=== PATIENT | male | born 2000 | race African-American/Black ===

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

== ENCOUNTER 2021-01-21 09:22 | Emergency (ER) | payer OTHER ==
[2021-01-21] MEDS ORDERED: SODIUM CHLORIDE IV ONE (09:45)
[2021-01-21 09:46] VITALS: BMI 22.7
[2021-01-21 10:35] LABS: BASO % 0.4 % (0-2.0); EOS % 0.9 % (0-4.5); HEMATOCRIT 44.1 % (35.4-49); HEMOGLOBIN 14.4 GM/dL (11.7-16.9); LYMPH % 12.4 % (8-40); MCH 29.4 pg (25.7-33.7); MCHC 32.8 g/dl (32.0-35.9); MEAN CELL VOLUME 89.7 fl (80-96); MONO % 5.4 % (3.8-10.2); NEUT % 80.9 % (42.8-82.8); PLATELET COUNT 210 K/MM3 (134-434); RBC 4.91 M/mm3 (4.00-5.60); RDW 12.6 % (11.9-15.9); WHITE BLOOD COUNT 7.1 K/mm3 (4.0-10.0)
[2021-01-21 10:58] LABS: CHLORIDE 104 mmol/L (98-107); SODIUM 138 mmol/L (136-145)
[2021-01-21 11:00] LABS: CALCIUM 9.3 mg/dL (8.5-10.1)
[2021-01-21 11:01] LABS: ALBUMIN 3.7 g/dl (3.4-5.0); ANION GAP 6 MMOL/L (8-16); BLOOD UREA NITROGEN 17.1 mg/dL (7-18); CO2 28 mmol/L (21-32); GLUCOSE,RANDOM 90 mg/dL (74-106)
[2021-01-21 11:04] LABS: SGOT/AST 27 U/L (15-37); SGPT/ALT 22 U/L (13-61)
[2021-01-21 11:06] LABS: BILIRUBIN,TOTAL 0.8 mg/dL (0.2-1); TOT PROT 7.1 g/dl (6.4-8.2)
[2021-01-21 11:07] LABS: ALK PHOS 99 U/L (45-117)
[2021-01-21 12:03] LABS: INR 1.09 (0.83-1.09); PROTHROMBIN TIME (PATIENT) 13.2 SEC (9.7-13.0)
[2021-01-21 12:06] LABS: ACTIVATED PTT 28.7 SECONDS (25.2-36.5)
[2021-01-21 13:25] LABS: PH,URINE 7.5 (5.0-8.0); URINE APPEARANCE CLEAR; URINE BILIRUBIN NEGATIVE (NEGATIVE); URINE COLOR YELLOW; URINE GLUCOSE (UA) NEGATIVE (NEGATIVE); URINE KETONE NEGATIVE (NEGATIVE); URINE LEUK ESTERASE NEGATIVE (NEGATIVE); URINE NITRITE NEGATIVE (NEGATIVE); URINE PROTEIN NEGATIVE (NEGATIVE); URINE UROBILINOGEN 0.2 mg/dL (0.2-1.0)
[2021-01-21 13:34] LABS: PHENCYCLIDINE,URINE NEGATIVE ng/ml (CUTOFF=25); URINE BARBITURATES NEGATIVE ng/ml (CUTOFF=200); URINE BENZODIAZEPINES NEGATIVE ng/ml (CUTOFF=200)
[2021-01-21 13:35] LABS: METHADONE, UR NEGATIVE ng/ml (CUTOFF=300); OPIATES, URI NEGATIVE ng/ml (CUTOFF=300)
[2021-01-21 14:02] LABS: COCAINE, UR NEGATIVE ng/ml (CUTOFF=300); URINE AMPHETAMINES NEGATIVE ng/ml (CUTOFF=500)
[2021-01-21 14:28] VITALS: BP 127/115; PULSE 66; TEMP 97.3
== END 2021-01-21 17:15 | disposition home or self-care (01) ==
LOC: JER 09:22
PROC: 3E0337Z Introduction of Electrolytic and Water Balance Substance into Peripheral Vein, Percutaneous Approach (ICD-10-PCS; principal; 2021-01-21)
PROC: 3E0337Z Introduction of Electrolytic and Water Balance Substance into Peripheral Vein, Percutaneous Approach (ICD-10-PCS; 2021-01-21)
DX: R40.4 Transient alteration of awareness (principal)
CPT/HCPCS: 36415; 70450-TC; 71045-TC-FY; 80053; 80164; 80307; 81003; 83605; 84439; 84443; 84481; 84484; 85025; 85610; 85730; 87040; 87086; 93005; 93010; 99285-25